=== PATIENT | male | born 1970 | race Two or more races ===

== ENCOUNTER 2024-11-20 15:46 | Emergency (ER) | payer MEDICAID ==
[~2024-11-20] VITALS: Ht 170.2 cm; Wt 59.0 kg
[2024-11-20 16:15] LABS: PLATELET COUNT (AUTO) 277 K/uL (150-450); RED BLOOD CELL COUNT(AUTO) 4.48 MIL/uL (4.5-6.0); RED CELL DISTRIBUTION WIDTH 13.1 % (11.5-15.0); WHITE BLOOD COUNT (AUTO) 5.2 K/uL (4.3-11.0)
[2024-11-20 16:27] LABS: CALCIUM, SERUM 8.7 mg/dL (8.5-10.1); CREATININE 1.5 mg/dL (0.6-1.3); SODIUM SERUM 138.0 mmol/L (136-145); UREA NITROGEN, BLOOD 17.0 mg/dL (7-18)
[2024-11-20] MEDS ORDERED: OLANZAPINE 5 MG TABLET ONE (16:31)
[2024-11-20 16:33] LABS: ASPARTATE AMINOTRANSFERASE 31.0 U/L (15-37); TOTAL PROTEIN, SERUM 7.4 g/dL (6.4-8.2)
[2024-11-20] MEDS: OLANZAPINE ZYDIS 5 MG TAB.RAPDIS PO ONE (16:37)
[2024-11-20 16:49] LABS: APPEARANCE,URINE CLEAR (CLEAR); BLOOD, URINE NEGATIVE Ery/uL (NEGATIVE); LEUKOCYTE ESTERASE ,URINE NEGATIVE (NEGATIVE); NITRITE, URINE NEGATIVE (NEGATIVE); UGLUCOSE NEGATIVE (NEGATIVE)
[2024-11-20 16:59] LABS: BARBITURATE, URINE NEGATIVE (NEGATIVE); BENZODIAZEPINE, URINE NEGATIVE (NEGATIVE); CANNABINOID, URINE NEGATIVE (NEGATIVE); COCCAINE, URINE NEGATIVE (NEGATIVE); OPIATE, URINE NEGATIVE (NEGATIVE)
[2024-11-20 17:00] LABS: AMPHETAMINE, URINE POSITIVE (NEGATIVE)
[2024-11-20 21:50] VITALS: BP 120/71; TEMP 98.7; O2SAT 99
== END 2024-11-20 20:50 ==
LOC: ER 15:48
DX: F15.959 Other stimulant use, unspecified with stimulant-induced psychotic disorder, unspecified (principal)
CPT/HCPCS: 36415; 80048-TC; 80076-TC; 85025-TC